=== PATIENT | male | born 2000 | race Hispanic/Latino ===

== ENCOUNTER 2021-06-09 15:39 | Emergency (ER) | payer OTHER ==
--- OUTSIDE RECORDS SUMMARY | 2021-06-09 15:41 | XMS REPORT | Continuity of Care Document ---
:2000 Author Organization [facility] t Address [address] [place] [place] [address] Care Team Providers Name Role Phone Haroon Leung Attending Clinician Doctor Unassigned, Name Attending Clinician Unavailable Jenny GIBSON Attending Clinician Problems This patient has no known problems. Allergies, Adverse Reactions, Alerts This patient has no known allergies or adverse reactions. Medications This patient has no known medications. Procedures This patient has no known procedures. Encounters Start End Encounter Admission Attending Care Care Encounter Source Date/Time Date/Time Type Type Clinicians Facility Department ID 2020-11-24 2020-11-24 Emergency Kimberly [facility] [id number] 10:33:00 12:42:00 Silvia Guzman [id number] [place] [id number] [place] [id number] 2020-11-24 2020-11-24 Orders Doctor ROSSANA [id number] 00:00:00 00:00:00 Only Unassigned, DOMINGO [id number] [place] [id number] 2019-06-12 2019-06-12 Telephone BIA [place] [id number] 00:00:00 00:00:00 [facility] [id number] [place] [id number] [facility] [phone] [place] [address] [address] One Results This patient has no known results.
[2021-06-09 16:44] LABS: Absolute Lymphocytes (CBC) 1.5 K/uL (0.7-4.9); Basophils % 0.6 % (0-1.3); Hematocrit 43.4 % (39.6-49.0); Lymphocytes % 11.9 % (15.3-44.8); MPV 8.9 fL (7.6-11.3); RBC Red Blood Cell Count 4.99 M/uL (4.33-5.43)
[2021-06-09] MEDS ORDERED: NA CHLORIDE 0.9% 1,000 ML ONE (16:48)
[2021-06-09 17:08] LABS: ALT/SGPT 61 U/L (12-78); AST/SGOT 19 U/L (15-37); Albumin 4.7 g/dL (3.4-5.0); Alkaline Phosphatase 117 U/L (45-117); BUN Blood Urea Nitrogen 12 mg/dL (7-18); Bicarbonate 26 mmol/L (21-32); Bilirubin Direct < 0.1 mg/dL (0-0.2); Bilirubin Total 0.3 mg/dL (0.2-1.0); Creatine Phosphokinase 157 U/L (39-308); Glucose Level 98 mg/dL (74-106); Magnesium 2.3 mg/dL (1.8-2.4); Potassium 4.1 mmol/L (3.5-5.1); Protein, Total 8.9 g/dL (6.4-8.2); Sodium Level 137 mmol/L (136-145); Troponin (Emerg Dept Use Only) < 0.02 ng/mL (0.0-0.045)
--- NOTE | 2021-06-09 17:16 | ER ---
Nurse's Notes [facility] Name: Christopher Garcia Jr Age: 20 yrs Sex: Male : 2000 Arrival Date: 06/09/2021 Time: 15:41 Bed 18 Private MD: Diagnosis: Syncope Near;Exposure to excessive natural heat, initial encounter Presentation: 06/09 15:46 Chief complaint: Patient states: Dizziness and nausea while at work today, also reports ph headache, states that he fells he may be dehydrated because he works in the heat. Coronavirus screen: Client denies travel out of the [place] in the last 14 days. At this time, the client does not indicate any symptoms associated with coronavirus-19. Ebola Screen: No symptoms or risks identified at this time. Initial Sepsis Screen: Does the patient meet any 2 criteria? No. Patient's initial sepsis screen is negative. Does the patient have a suspected source of infection? No. Patient's initial sepsis screen is negative. Risk Assessment: Do you want to hurt yourself or someone else? Patient reports no desire to harm self or others. Onset of symptoms was June 09, 2021. 15:46 Method Of Arrival: Ambulatory 15:46 Acuity: MARYLIN 3 ph Triage Assessment: 16:30 Headache History: Denies prior headaches. General: Appears in no apparent distress. ld1 comfortable, Behavior is calm, cooperative, appropriate for age. Pain: Pain currently is 5 out of 10 on a pain scale. Pain began suddenly, Also complains of. Historical: - Allergies: 15:49 No Known Allergies; ph - Home Meds: 15:49 None [Active]; ph - PMHx: 15:49 None; ph - Immunization history:: Client reports having NOT received the Covid vaccine. - Social history:: Smoking status: Patient denies any tobacco usage or history of. Screenin:30 Abuse screen: Denies threats or abuse. Denies injuries from another. Nutritional ld1 screening: No deficits noted. Tuberculosis screening: No symptoms or risk factors identified. Fall Risk None identified. Assessment: 16:30 General: Appears in no apparent distress. comfortable, Behavior is calm, cooperative, ld1 appropriate for age. 16:30 Pain: Denies pain. Neuro: Level of Consciousness is awake, alert, obeys commands, ld1 Oriented to person, place, time, situation, Appropriate for age. Cardiovascular: Capillary refill < 3 seconds Patient's skin is warm and dry. Respiratory: Airway is patent Respiratory effort is even, unlabored, Respiratory pattern is regular, symmetrical. GI: Abdomen is flat, non-distended. : No signs and/or symptoms were reported regarding the genitourinary system. EENT: No signs and/or symptoms were reported regarding the EENT system. Derm: No signs and/or symptoms reported regarding the dermatologic system. Musculoskeletal: No signs and/or symptoms reported regarding the musculoskeletal system. Vital Signs: 15:46 BP 150 / 107; Pulse 85; Resp 18; Temp 97.1; Pulse Ox 100% on R/A; Weight 112.04 kg; ph ED Course: 15:41 Patient arrived in ED. mr 15:49 Triage completed. ph 15:49 Arm band placed on Patient placed in waiting room, Patient notified of wait time. ph 16:02 Rosa Beaulieu, KAUSHIK is Primary Nurse. ld1 16:07 Jason Hernandez NP is PHCP. pm1 16:07 Trevin White MD is Attending Physician. pm1 16:30 Patient has correct armband on for positive identification. Placed in gown. Bed in low ld1 position. Call light in reach. Side rails up X2. Pulse ox on. NIBP on. Door closed. Noise minimized. Warm blanket given. 16:30 No provider procedures requiring assistance completed. Inserted saline lock: 20 gauge ld1 in right antecubital area, using aseptic technique. Blood collected. 16:35 XRAY Chest (1 view) In Process Unspecified. EDMS 17:31 IV discontinued, intact, bleeding controlled, No redness/swelling at site. ld1 Administered Medications: 17:04 Drug: NS 0.9% 1000 ml Route: IV; Rate: 1000 ml; Site: right antecubital; ld1 Outcome: 17:16 Discharge ordered by . pm1 17:31 Discharged to home ambulatory. ld1 17:31 Condition: stable 17:31 Discharge instructions given to patient, family, Instructed on discharge instructions, follow up and referral plans. Demonstrated understanding of instructions, follow-up care. 17:31 Patient left the ED. ld1 Signatures: Dispatcher [employer] EDMS Cindy Roy Patricia, RN RN ph Jason Hernandez, MOTORS ASSEMBLER MOTORS ASSEMBLER pm1 Rosa Beaulieu RN RN ld1
--- NOTE | 2021-06-09 17:16 | EDPHYS ---
Physician Documentation [facility] Name: Christopher Garcia Jr Age: 20 yrs Sex: Male : 2000 Arrival Date: 06/09/2021 Time: 15:41 Bed 18 Private MD: ED Physician Trevin White HPI: 06/09 16:19 This 20 yrs old Male presents to ER via Ambulatory with complaints of pm1 Dizziness, Headache, Nausea. 16:19 The patient presents with feeling faint. Onset: The symptoms/episode began/occurred pm1 today. Context: occurred at work, occurred while the patient was working, just prior to the episode the patient experienced no apparent symptoms. Modifying factors: The symptoms are alleviated by rest, the symptoms are aggravated by heat. Associated signs and symptoms: Pertinent positives: headache, nausea, Pertinent negatives: abdominal pain, chest pain, shortness of breath, vomiting. Severity of symptoms: in the emergency department the symptoms have resolved Pain is currently a 0 / 10. Patient's baseline: Neuro: alert and fully oriented, Motor: no deficits, Ambulation: walks without assistance, Speech: normal. The patient has experienced similar episodes in the past, a few times. The patient has not recently seen a physician. Historical: - Allergies: 15:49 No Known Allergies; ph - Home Meds: 15:49 None [Active]; ph - PMHx: 15:49 None; ph - Immunization history:: Client reports having NOT received the Covid vaccine. - Social history:: Smoking status: Patient denies any tobacco usage or history of. ROS: 16:19 Constitutional: Negative for fever, chills, and weight loss, Cardiovascular: Negative pm1 for chest pain, palpitations, and edema, Respiratory: Negative for shortness of breath, cough, wheezing, and pleuritic chest pain. 16:19 Back: Negative for injury and pain, MS/Extremity: Negative for injury and deformity, Skin: Negative for injury, rash, and discoloration. 16:19 Abdomen/GI: Positive for nausea, Negative for abdominal pain, vomiting, diarrhea. 16:19 Neuro: Positive for dizziness, near syncope, Negative for numbness, tingling, weakness. 16:19 All other systems are negative. Exam: 16:19 Constitutional: This is a well developed, well nourished patient who is awake, alert, pm1 and in no acute distress. Head/Face: Normocephalic, atraumatic. 16:19 Neck: Trachea midline, no thyromegaly or masses palpated, and no cervical lymphadenopathy. Supple, full range of motion without nuchal rigidity, or vertebral point tenderness. No Meningismus. 16:19 Back: No spinal tenderness. No costovertebral tenderness. Full range of motion. Skin: Warm, dry with normal turgor. Normal color with no rashes, no lesions, and no evidence of cellulitis. MS/ Extremity: Pulses equal, no cyanosis. Neurovascular intact. Full, normal range of motion. 16:19 Eyes: Extraocular movements: no acute changes, Conjunctiva: no acute changes, no injection, Sclera: no acute changes, icterus, is not appreciated. 16:19 ENT: Exam is negative for acute changes, Mouth: Lips: normal, moist, Oral mucosa: normal, pink and intact, moist. 16:19 Cardiovascular: Rate: normal, Rhythm: regular, Pulses: no pulse deficits are appreciated, Heart sounds: normal, normal S1and S2. 16:19 Respiratory: Exam negative for acute changes, respiratory distress, shortness of breath, Breath sounds: are clear throughout. 16:19 Abdomen/GI: Inspection: obese Palpation: abdomen is soft and non-tender, in all quadrants. 16:19 Neuro: Exam negative for acute changes, Orientation: is normal, Mentation: is normal, Motor: is normal, moves all fours. Vital Signs: 15:46 BP 150 / 107; Pulse 85; Resp 18; Temp 97.1; Pulse Ox 100% on R/A; Weight 112.04 kg; ph MDM: 16:16 Patient medically screened. pm1 17:15 Data reviewed: vital signs. Data interpreted: Pulse oximetry: on room air is 100 %. pm1 Interpretation: normal. Counseling: I had a detailed discussion with the patient and/or guardian regarding: the historical points, exam findings, and any diagnostic results supporting the discharge/admit diagnosis, lab results, radiology results, the need for outpatient follow up, to return to the emergency department if symptoms worsen or persist or if there are any questions or concerns that arise at home. 17:15 Special discussion: I have referred the patient to see his PCP for further evaluation pm1 of high blood pressure. 06/09 16:18 Order name: Basic Metabolic Panel pm1 06/09 16:18 Order name: CBC with Diff pm1 06/09 16:18 Order name: LFT's pm1 06/09 16:18 Order name: Magnesium; Complete Time: 17:14 pm1 06/09 16:18 Order name: Troponin (emerg Dept Use Only); Complete Time: 17:14 pm1 06/09 16:18 Order name: CPK; Complete Time: 17:14 pm1 06/09 16:18 Order name: XRAY Chest (1 view); Complete Time: 17:25 pm1 06/09 16:18 Order name: EKG; Complete Time: 16:19 pm1 06/09 16:18 Order name: Cardiac monitoring; Complete Time: 17:04 pm1 06/09 16:18 Order name: EKG - Nurse/Tech; Complete Time: 17:04 pm1 06/09 16:19 Order name: Basic Metabolic Panel; Complete Time: 17:14 EDMS 06/09 16:19 Order name: CBC with Automated Diff; Complete Time: 17:01 EDMS 06/09 16:19 Order name: Liver (Hepatic) Function; Complete Time: 17:14 EDMS 06/09 16:18 Order name: IV Saline Lock; Complete Time: 17:04 pm1 06/09 16:18 Order name: Labs collected and sent; Complete Time: 17:04 pm1 06/09 16:18 Order name: O2 Per Protocol; Complete Time: 16:21 pm1 06/09 16:18 Order name: O2 Sat Monitoring; Complete Time: 16:21 pm1 Administered Medications: 17:04 Drug: NS 0.9% 1000 ml Route: IV; Rate: 1000 ml; Site: right antecubital; ld1 Disposition: 06/10 07:08 Co-signature as Attending Physician, Trevin White MD I agree with the assessment and kdr plan of care. Disposition Summary: 06/09/21 17:16 Discharge Ordered Location: Home pm1 Problem: new pm1 Symptoms: have improved pm1 Condition: Stable pm1 Diagnosis - Syncope Near pm1 - Exposure to excessive natural heat, initial encounter pm1 Followup: pm1 - With: Emergency Department - When: As needed - Reason: Worsening of condition Followup: pm1 - With: Private Physician - When: 2 - 3 days - Reason: Recheck today's complaints, Continuance of care, Re-evaluation by your physician Discharge Instructions: - Discharge Summary Sheet pm1 - Near-Syncope pm1 - Heat Exhaustion pm1 - Preventing Heat Exhaustion, Adult pm1 Forms: - Medication Reconciliation Form pm1 - Thank You Letter pm1 - Antibiotic Education pm1 - Prescription Opioid Use pm1 Signatures: Dispatcher [employer] EDTrevin Lorenzo MD MD kdr Hall, Patricia RN RN ph Jason Hernandez, [employer] RESEARCHER pm1 Rosa Beaulieu RN RN ld1
--- NOTE | 2021-06-09 17:22 | RAD REPORT ---
EXAM DESCRIPTION: Ai Single View06/09/2021 4:35 pm CLINICAL HISTORY: Syncope COMPARISON: none FINDINGS: The lungs appear clear of acute infiltrate. The heart is normal size IMPRESSION: No acute abnormalities displayed
[2021-06-09 18:56] VITALS: BP 150/107; TEMP 97.1; O2SAT 100
--- NOTE | 2021-06-10 10:42 | EKG ---
Test Date: 2021-06-09 Test Time: 16:29:10 Pin Drafting Machine Tender: MARSHALL MEASUREMENT RESULTS: Intervals: Rate: 85 KS: 144 QRSD: 92 QT: 350 QTc: 416 [place]: P: 35 KS: 144 QRS: 10 T: 76 INTERPRETIVE STATEMENTS: Normal sinus rhythm Normal ECG No previous ECG available for comparison Electronically Signed On 06-10-21 10:41:09 CDT by Javier Carias
== END 2021-06-09 17:31 | disposition home or self-care (01) ==
LOC: ER 15:39
DX: R55 Syncope and collapse (principal); X30.XXXA Exposure to excessive natural heat, initial encounter
CPT/HCPCS: 93005; 85025; 80048; 36415; 83735; 82550; 80076; 84484; 71045; 99284; J7030

== ENCOUNTER 2022-07-30 16:08 | Emergency (ER) | payer OTHER ==
--- OUTSIDE RECORDS SUMMARY | 2022-07-30 16:19 | XMS REPORT | Continuity of Care Document ---
:2000 Author Organization [facility] t Address [address] [place] [place] [address] Care Team Providers Name Role Phone PCP, PATIENT DOES NOT HAVE A Primary Care Physician UnavailDOLLY Clarke Attending Clinician Unavailable Dolly Mariee MD Attending Clinician Silvia Leung Attending Clinician Doctor Unassigned, [place] Attending Clinician Unavailable Gail Collins Attending Clinician Payers Payer Name Policy Type Policy Number Effective Date Expiration Date S james ALVARADO FROM [id number] 2020 [facility] 00:00:00 Problems Condition Condition Condition Status Onset Resolution Last Treating Co mments Source Name Details Category Date Date Treatment Clinician Date Epigastric Epigastric Disease Active U nivers pain pain 7-15 ity of 00:00: [address] Elevated Elevated Disease Active Unive rs blood blood 7-15 ity of pressure pressure 00:00: [place] reading reading [facility] Nonintract Nonintract Disease Active U nivers able able 6-14 ity of headache headache 00:00: [address] Impacted Impacted Disease Active Unive rs cerumen of cerumen of 6-14 it y of [place] [facility] Allergies, Adverse Reactions, Alerts Allergy Allergy Status Severity Reaction(s) Onset Inactive Treating Comm ents Source Name Type Date Date Clinician NO KNOWN Drug Active Univers ALLERGIE Class ity of S [facility] Social History Social Habit Start Date Stop Date Quantity Comments Source Exposure to 2022-07-17 2022-07-27 Not sure [facility] SARS-CoV-2 00:00:00 20:41:00 [facility] (event) [place] Alcohol intake 2022-07-27 2022-07-27 0 /d [facility] 00:00:00 00:00:00 [facility] Tobacco use and 2013-12-05 2013-12-05 Smokeless tobacco Un iversity of exposure 00:00:00 00:00:00 non-user [facility] Sex Assigned At [birth year] Universit y of 00:00:00 00:00:00 [facility] Smoking Status Start Date Stop Date Source Never smoked tobacco [facility] [place] Medications Ordered Filled Start Stop Current Ordering Indication Dosage Frequency Signature Comments Components Source Medication Medication Date Date Medication? Clinician (SIG) Name Name cephALEXin 2021- Yes [id number] 500mg Take 1 Univers 500 mg 07-27 capsule by ity of capsule 00:00: 04:59 mouth 3 [place] 00 :00 (three) Medical times [place] daily for 10 days. tetanus-dip 2020- No .5mL 0.5 mL, Un julius htheria 11-24 Intramuscu ity o f toxoids 17:45: 17:45 lar, ONCE, [place] as (TDVAX) 2-2 00 :00 1 dose, Medic al Lf unit/0.5 11/24/20 Br anch mL at 1145, injection Routine 0.5 mL cephALEXin 2020- No [id number] 500mg Take 1 Univers (KEFLEX) 11-24 [id number] capsule by it y of 500 mg 00:00: 05:59 mouth 4 [place] capsule 00 :00 (four) Medical times [place] daily for 7 days. levoFLOXaci 2020- No [id number] 500mg Take 1 Univers n 11-24 [id number] tablet by ity of (LEVAQUIN) 00:00: 05:59 mouth [place] 500 mg 00 :00 every 24 Medical tablet (twenty-fo Branch ur) hours for 7 days. omeprazole 2018- No [id number] 20mg Take 1 Univers (PRILOSEC 7-15 08-15 tablet by ity of OTC) 20 mg 00:00: 04:59 mouth [place] tablet 00 :00 daily Medical before a Branch meal for 30 days. No known No Univers medications ity of [facility] Immunizations Ordered Immunization Filled Immunization Date Status Commen ts Source Name Name Td 2020-11-24 Completed University of 00:00:00 [facility] Branch Td 2020-11-24 Completed University of 00:00:00 [facility] Meningococcal B, OMV 2016-04-15 Completed Univ ersity of 00:00:00 [facility] Meningococcal B, OMV 2016-04-15 Completed Univ ersity of 00:00:00 [facility] Meningococcal B, OMV 2016-04-15 Completed Univ ersity of 00:00:00 [facility] Meningococcal B, OMV 2016-04-15 Completed Univ ersity of 00:00:00 [facility] Meningococcal 2016-02-25 Completed University of Polysaccharide 00:00:00 [place] [facility]andra (groups A, C, Y and Branc h W-135) conjugate vaccine (MCV4P) Meningococcal B, OMV 2016-02-25 Completed Univ ersity of 00:00:00 [facility] Meningococcal 2016-02-25 Completed University of Polysaccharide 00:00:00 [place] Med[facility] lisandra (groups A, C, Y and Branc h W-135) conjugate vaccine (MCV4P) Meningococcal B, OMV 2016-02-25 Completed Univ ersity of 00:00:00 [facility] Meningococcal 2016-02-25 Completed University of Polysaccharide 00:00:00 [place] Med[facility] lisandra (groups A, C, Y and Branc h W-135) conjugate vaccine (MCV4P) Meningococcal B, OMV 2016-02-25 Completed Univ ersity of 00:00:00 [facility] Meningococcal 2016-02-25 Completed University of Polysaccharide 00:00:00 [place] Medi lisandra (groups A, C, Y and Branc h W-135) conjugate vaccine (MCV4P) Meningococcal B, OMV 2016-02-25 Completed Univ ersity of 00:00:00 [facility] Influenza Virus 2015-09-18 Completed Universit y of Vaccine Quad IM 3+ 00:00:00 [facility] Influenza Virus 2015-09-18 Completed Universit y of Vaccine Quad IM 3+ 00:00:00 [facility] Influenza Virus 2015-09-18 Completed Universit y of Vaccine Quad IM 3+ 00:00:00 [facility] Influenza Virus 2015-09-18 Completed Universit y of Vaccine Quad IM 3+ 00:00:00 [facility] Influenza Virus 2015-01-07 Completed Universit y of Vaccine Quad Nasal 00:00:00 [facility] Influenza Virus 2015-01-07 Completed Universit y of Vaccine Quad Nasal 00:00:00 [facility] Influenza Virus 2015-01-07 Completed Universit y of Vaccine Quad Nasal 00:00:00 [facility] Influenza Virus 2015-01-07 Completed Universit y of Vaccine Quad Nasal 00:00:00 [facility] Influenza Virus 2013-12-05 Completed Universit y of Vaccine Nasal 00:00:00 [facility] Influenza Virus 2013-12-05 Completed Universit y of Vaccine Nasal 00:00:00 [facility] Influenza Virus 2013-12-05 Completed Universit y of Vaccine Nasal 00:00:00 [facility] Influenza Virus 2013-12-05 Completed Universit y of Vaccine Nasal 00:00:00 [facility] Influenza Virus 2012-09-29 Completed Universit y of Vaccine Nasal 00:00:00 [facility] Influenza Virus 2012-09-29 Completed Universit y of Vaccine Nasal 00:00:00 [facility] Influenza Virus 2012-09-29 Completed Universit y of Vaccine Nasal 00:00:00 [facility] Influenza Virus 2012-09-29 Completed Universit y of Vaccine Nasal 00:00:00 [facility] HPV 2011-08-10 Completed University of 00:00:00 [facility] HPV 2011-08-10 Completed University of 00:00:00 [facility] HPV 2011-08-10 Completed University of 00:00:00 [facility] HPV 2011-08-10 Completed University of 00:00:00 [facility] HPV 2010-12-31 Completed University of 00:00:00 [facility] HPV 2010-12-31 Completed University of 00:00:00 [facility] HPV 2010-12-31 Completed University of 00:00:00 [facility] Branch HPV 2010-12-31 Completed University of 00:00:00 [facility] HPV 2010-09-15 Completed University of 00:00:00 [facility] Influenza Virus 2010-09-15 Completed Universit y of Vaccine 00:00:00 [facility] Meningococcal Vaccine 2010-09-15 Completed Uni versity of 00:00:00 [facility] Branch TDAP 2010-09-15 Completed University of 00:00:00 [facility] HPV 2010-09-15 Completed University of 00:00:00 [facility] Influenza Virus 2010-09-15 Completed Universit y of Vaccine 00:00:00 [facility] Meningococcal Vaccine 2010-09-15 Completed Uni versity of 00:00:00 [facility] TDAP 2010-09-15 Completed University of 00:00:00 [facility] HPV 2010-09-15 Completed University of 00:00:00 [facility] Influenza Virus 2010-09-15 Completed Universit y of Vaccine 00:00:00 [facility] Meningococcal Vaccine 2010-09-15 Completed Uni versity of 00:00:00 [facility] Tdap 2010-09-15 Completed University of 00:00:00 [facility] HPV 2010-09-15 Completed University of 00:00:00 [facility] Influenza Virus 2010-09-15 Completed Universit y of Vaccine 00:00:00 [facility] Meningococcal Vaccine 2010-09-15 Completed Uni versity of 00:00:00 [facility] TDAP 2010-09-15 Completed University of 00:00:00 [facility] H1n1 Vaccine 2009-10-21 Completed University o f 00:00:00 [facility] H1n1 Vaccine 2009-10-21 Completed University o f 00:00:00 [facility] H1n1 Vaccine 2009-10-21 Completed University o f 00:00:00 [facility] H1n1 Vaccine 2009-10-21 Completed University o f 00:00:00 [facility] Influenza Virus 2007-12-01 Completed Universit y of Vaccine 00:00:00 [facility] Influenza Virus 2007-12-01 Completed Universit y of Vaccine 00:00:00 [facility] Influenza Virus 2007-12-01 Completed Universit y of Vaccine 00:00:00 [facility] Influenza Virus 2007-12-01 Completed Universit y of Vaccine 00:00:00 [facility] Influenza Virus 2007-10-27 Completed Universit y of Vaccine 00:00:00 [facility] Influenza Virus 2007-10-27 Completed Universit y of Vaccine 00:00:00 [facility] Influenza Virus 2007-10-27 Completed Universit y of Vaccine 00:00:00 [facility] Influenza Virus 2007-10-27 Completed Universit y of Vaccine 00:00:00 [facility] Varicella 2006-12-23 Completed University of (varivax)(chicken 00:00:00 [place] [facility] pox) Branch Varicella 2006-12-23 Completed University of (varivax)(chicken 00:00:00 [place] [facility] pox) Branch Varicella 2006-12-23 Completed University of (varivax)(chicken 00:00:00 [place] M ed[facility] pox) Branch Varicella 2006-12-23 Completed University of (varivax)(chicken 00:00:00 [place] M [facility] pox) Branch HEPATITIS A 2006-06-02 Completed University of 00:00:00 [facility] HEPATITIS A 2006-06-02 Completed University of 00:00:00 [facility] HEPATITIS A 2006-06-02 Completed University of 00:00:00 [facility] HEPATITIS A 2006-06-02 Completed University of 00:00:00 [facility] HEPATITIS A 2005-11-24 Completed University of 00:00:00 [facility] HEPATITIS A 2005-11-24 Completed University of 00:00:00 [facility] HEPATITIS A 2005-11-24 Completed University of 00:00:00 [facility] HEPATITIS A 2005-11-24 Completed University of 00:00:00 [facility] DTAP 2003-10-07 Completed University of 00:00:00 [facility] MMR 2003-10-07 Completed University of 00:00:00 [facility] Polio (IPV/OPV) 2003-10-07 Completed Universit y of 00:00:00 [facility] DTAP 2003-10-07 Completed University of 00:00:00 [facility] DTAP 2003-10-07 Completed University of 00:00:00 [facility] MMR 2003-10-07 Completed University of 00:00:00 [facility] Polio (IPV/OPV) 2003-10-07 Completed Universit y of 00:00:00 [facility] MMR 2003-10-07 Completed University of 00:00:00 [facility] Polio (IPV/OPV) 2003-10-07 Completed Universit y of 00:00:00 [facility] DTAP 2003-10-07 Completed University of 00:00:00 [facility] MMR 2003-10-07 Completed University of 00:00:00 [facility] Polio (IPV/OPV) 2003-10-07 Completed Universit y of 00:00:00 [facility] Pneumococcal 7 2003-02-07 Completed University of Conjugate, PCV7 00:00:00 [place] Med ical (Prevnar7) Branch Pneumococcal 7 2003-02-07 Completed University of Conjugate, PCV7 00:00:00 [place] [facility] ical (Prevnar7) Branch Pneumococcal 7 2003-02-07 Completed University of Conjugate, PCV7 00:00:00 [place] [facility] ical (Prevnar7) Branch Pneumococcal 7 2003-02-07 Completed University of Conjugate, PCV7 00:00:00 [place] Med ical (Prevnar7) Branch Pneumococcal 7 2001-02-06 Completed University of Conjugate, PCV7 00:00:00 [place] Med ical (Prevnar7) Branch Pneumococcal 7 2001-02-06 Completed University of Conjugate, PCV7 00:00:00 [place] [facility] ical (Prevnar7) Branch Pneumococcal 7 2001-02-06 Completed University of Conjugate, PCV7 00:00:00 [place] [facility] ical (Prevnar7) Branch Pneumococcal 7 2001-02-06 Completed University of Conjugate, PCV7 00:00:00 [place] [facility] ical (Prevnar7) Branch Hep B, Adol or Pedi 2000-11-07 Completed Unive rsity of Dosage 00:00:00 [facility] Hep B, Adol or Pedi 2000-11-07 Completed Unive rsity of Dosage 00:00:00 [facility] Hep B, Adol or Pedi 2000-11-07 Completed Unive rsity of Dosage 00:00:00 [facility] Hep B, Adol or Pedi 2000-11-07 Completed Unive rsity of Dosage 00:00:00 [facility] DTAP 2000-08-08 Completed University of 00:00:00 [facility] HIB 4 Dose Schedule 2000-08-08 Completed Unive rsity of 00:00:00 [facility] MMR 2000-08-08 Completed University of 00:00:00 [facility] Polio (IPV/OPV) 2000-08-08 Completed Universit y of 00:00:00 [facility] Varicella 2000-08-08 Completed University of (varivax)(chicken 00:00:00 [facility] edical pox) Branch DTAP 2000-08-08 Completed University of 00:00:00 [facility] DTAP 2000-08-08 Completed University of 00:00:00 [facility] HIB 4 Dose Schedule 2000-08-08 Completed Unive rsity of 00:00:00 [facility] MMR 2000-08-08 Completed University of 00:00:00 [facility] Polio (IPV/OPV) 2000-08-08 Completed Universit y of 00:00:00 [facility] HIB 4 Dose Schedule 2000-08-08 Completed Unive rsity of 00:00:00 [facility] Varicella 2000-08-08 Completed University of (varivax)(chicken 00:00:00 [place] M edical pox) Branch MMR 2000-08-08 Completed University of 00:00:00 [facility] Polio (IPV/OPV) 2000-08-08 Completed Universit y of 00:00:00 [facility] Varicella 2000-08-08 Completed University of (varivax)(chicken 00:00:00 [place] M edical pox) Branch DTAP 2000-08-08 Completed University of 00:00:00 [facility] HIB 4 Dose Schedule 2000-08-08 Completed Unive rsity of 00:00:00 [facility] MMR 2000-08-08 Completed University of 00:00:00 [facility] Polio (IPV/OPV) 2000-08-08 Completed Universit y of 00:00:00 [facility] Varicella 2000-08-08 Completed University of (varivax)(chicken 00:00:00 [place] M edical pox) Branch Hep B, Adol or Pedi 2000-05-09 Completed Unive rsity of Dosage 00:00:00 [facility] Hep B, Adol or Pedi 2000-05-09 Completed Unive rsity of Dosage 00:00:00 [facility] Hep B, Adol or Pedi 2000-05-09 Completed Unive rsity of Dosage 00:00:00 [facility] Hep B, Adol or Pedi 2000-05-09 Completed Unive rsity of Dosage 00:00:00 [facility] DTAP 2000-02-09 Completed University of 00:00:00 [facility] HIB 4 Dose Schedule 2000-02-09 Completed Unive rsity of 00:00:00 [facility] Hep B, Adol or Pedi 2000-02-09 Completed Unive rsity of Dosage 00:00:00 [facility] DTAP 2000-02-09 Completed University of 00:00:00 [facility] DTAP 2000-02-09 Completed University of 00:00:00 [facility] HIB 4 Dose Schedule 2000-02-09 Completed Unive rsity of 00:00:00 [facility] Hep B, Adol or Pedi 2000-02-09 Completed Unive rsity of Dosage 00:00:00 [facility] HIB 4 Dose Schedule 2000-02-09 Completed Unive rsity of 00:00:00 [facility] Hep B, Adol or Pedi 2000-02-09 Completed Unive rsity of Dosage 00:00:00 [facility] DTAP 2000-02-09 Completed University of 00:00:00 [facility] HIB 4 Dose Schedule 2000-02-09 Completed Unive rsity of 00:00:00 [facility] Hep B, Adol or Pedi 2000-02-09 Completed Unive rsity of Dosage 00:00:00 [facility] DTAP 1999 Completed University of 00:00:00 [facility] HIB 4 Dose Schedule 1999 Completed Unive rsity of 00:00:00 [facility] Polio (IPV/OPV) 1999 Completed Universit y of 00:00:00 [facility] DTAP 1999 Completed University of 00:00:00 [facility] DTAP 1999 Completed University of 00:00:00 [facility] HIB 4 Dose Schedule 1999 Completed Unive rsity of 00:00:00 [facility] HIB 4 Dose Schedule 1999 Completed Unive rsity of 00:00:00 [facility] Polio (IPV/OPV) 1999 Completed Universit y of 00:00:00 [facility] Polio (IPV/OPV) 1999 Completed Universit y of 00:00:00 [facility] DTAP 1999 Completed University of 00:00:00 [facility] HIB 4 Dose Schedule 1999 Completed Unive rsity of 00:00:00 [facility] Polio (IPV/OPV) 1999 Completed Universit y of 00:00:00 [facility] DTAP 1999 Completed University of 00:00:00 [facility] HIB 4 Dose Schedule 1999 Completed Unive rsity of 00:00:00 [facility] DTAP 1999 Completed University of 00:00:00 [facility] Polio (IPV/OPV) 1999 Completed Universit y of 00:00:00 [facility] DTAP 1999 Completed University of 00:00:00 [facility] HIB 4 Dose Schedule 1999 Completed Unive rsity of 00:00:00 [facility] HIB 4 Dose Schedule 1999 Completed Unive rsity of 00:00:00 [facility] Polio (IPV/OPV) 1999 Completed Universit y of 00:00:00 [facility] Polio (IPV/OPV) 1999 Completed Universit y of 00:00:00 [facility] DTAP 1999 Completed University of 00:00:00 [facility] HIB 4 Dose Schedule 1999 Completed Unive rsity of 00:00:00 [facility] Polio (IPV/OPV) 1999 Completed Universit y of 00:00:00 [facility] Vital Signs Vital Name Observation Time Observation Value Comments Source Systolic blood 2022-07-28 01:43:00 160 mm[Hg] Univer sity of pressure [facility] Diastolic blood 2022-07-28 01:43:00 113 mm[Hg] Unive rsity of pressure [facility] Heart rate 2022-07-28 01:43:00 105 /min [facility] Body temperature 2022-07-28 01:43:00 36.78 [place] [facility] Res[facility] rate 2022-07-28 01:43:00 18 /min [facility] Body height 2022-07-28 01:43:00 165.1 cm [facility] Body weight 2022-07-28 01:43:00 113.399 kg [facility] BMI 2022-07-28 01:43:00 41.60 kg/m2 [facility] Oxygen saturation in 2022-07-28 01:43:00 96 /min [facility] Arterial blood by [facility] Pulse oximetry Branch Respiratory rate 2020-11-24 16:31:00 18 /min Univ ersity of [place] [facility] Body weight 2020-11-24 16:31:00 83.915 kg Universi ty of [place] [facility] Oxygen saturation in 2020-11-24 16:31:00 99 /min University of Arterial blood by [facility] Pulse oximetry Branch Systolic blood 2020-11-24 16:31:00 156 mm[Hg] Univer sity of pressure [place] [facility] Diastolic blood 2020-11-24 16:31:00 137 mm[Hg] Unive rsity of pressure [place] [facility] Heart rate 2020-11-24 16:31:00 92 /min Universi ty of [place] [facility] Body temperature 2020-11-24 16:31:00 37.22 [place] Univ ersity of [place] [facility] Respiratory rate 2020-11-24 16:31:00 18 /min Univ ersity of [place] [facility] Body weight 2020-11-24 16:31:00 83.915 kg Universi ty of [place] [facility] [place] Oxygen saturation in 2020-11-24 16:31:00 99 /min University of Arterial blood by [facility] Pulse oximetry Branch Systolic blood 2020-11-24 16:31:00 156 mm[Hg] Univer sity of pressure [place] [facility] Diastolic blood 2020-11-24 16:31:00 137 mm[Hg] Unive rsity of pressure [place] [facility] Heart rate 2020-11-24 16:31:00 92 /min Universi ty of [place] [facility] Body temperature 2020-11-24 16:31:00 37.22 [place] [facility] [place] [facility] [place] Procedures Procedure Date / Time Performed Performing Clinician [facility] e NOTICE OF PRIVACY 2022-07-28 01:39:30 Doctor Unassigned, No Univ ersity of [place] PRACTICES Name Medical Branch CONSENT/REFUSAL FOR 2022-07-28 01:39:01 Doctor Unassigned, No Un iversity of [place] DIAGNOSIS AND Name Medical Branch TREATMENT XR TOES 2 VW LEFT 2020-11-24 17:21:47 Silvia Harris [facility] [place] CONSENT/REFUSAL FOR 2020-11-24 16:14:16 Doctor Unassigned, No Un [facility] of [place] DIAGNOSIS AND Name Medical Branch TREATMENT Encounters Start End Encounter Admission Attending Care Care Encounter Source Date/Time Date/Time Type Type Clinicians Facility Department ID 2021-09-19 Emergency [facility] [id number] Univers 14:43:31 ity [facility] 2022-07-27 2022-07-27 Emergency X [facility] ERT [id number] Univers 20:46:00 21:23:00 DOLLY ity [facility] 2022-07-27 2022-07-27 Emergency [facility] [id number] Univers 20:46:00 21:23:00 Dolly Lr LADY [id number] ity of [place] [id number] [facility] [id number] [address] 2020-11-24 2020-11-24 Emergency [facility] [id number] 10:33:00 12:42:00 Silvia Guzman [id number] [place] [id number] [place] [id number] [facility] 2020-11-24 2020-11-24 Emergency [facility] [id number] Univers 10:33:00 12:42:00 Silvia Guzman [id number] i ty of [place] [id number] [facility] [id number] [address] 2020-11-24 2020-11-24 Orders Doctor TRACY [id number] 00:00:00 00:00:00 Only UnassignedDOMINGO [id number] [place] [facility] [id number] 2020-11-24 2020-11-24 Orders Doctor ROSSANA [id number] Univers 00:00:00 00:00:00 Only UnassignedDOMINGO [id number] ity of [place] [facility] [id number] [place] [id number] [address] 2019-06-12 2019-06-12 [facility] [id number] 00:00:00 00:00:00 [facility] [id number] [place] [id number] Professio [id number] [address]al [address] 2019-06-12 2019-06-12 Telephone BIA Alvarado [id number] Univers 00:00:00 00:00:00 Gail Burnette [id number] it y of [place] [id number] [place] as Faviola [id number] Dc dical nal [address] Results Test Description Test Time Test Comments Results Result Sourc e Comments XR TOES 2 VW No acute bony Universi ty of LEFT 4 abnormality. Soft [facility] edical 18:13:03 tissue swelling Branch with possible radiopaque foreign bodies in the greattoe. REPORT CHANGE: Multiple subcentimeter densities in the great toe soft tissues mayrepresent foreign bodies, soft tissue calcifications or remote fracturefragments. Correlation with the location of soft tissue injury isrecommended. The findings of this study, including possible foreign bodies, have beendiscussed with and acknowledged by Dr. Barrera over the phone on 11/24/2020 [id number] with readback. Preliminary Report Dictated by Resident: Kelly Tucker MD., have reviewed this study and agree with the abovereport.EXAM: XR TOES 2 VW LEFT HISTORY: stepped on glass COMPARISON: None. FINDINGS: Radiographs of the left toes demonstrate no acute fractures ordislocations. Joint spaces are preserved. Alignment is within normallimits. Mild soft tissue swelling seen about the plantar surface of thegreat toe. [facility], Radiant Results Inft User - 11/24/2020 12:14 PM CSTEXAM: XR TOES 2 VW LEFTHISTORY: stepped on glass COMPARISON: None.FINDINGS: Radiographs of the left toes demonstrate no acute fractures ordislocations. Joint spaces are preserved. Alignment is within normallimits. Mild soft tissue swelling seen about the plantar surface of thegreat toe.IMPRESSIONNo acute bony abnormality.Soft tissue swelling with possible radiopaque foreign bodies in the greattoe.REPORT CHANGE:Multiple subcentimeter densities in the great toe soft tissues mayrepresent foreign bodies, soft tissue calcifications or remote fracturefragments. Correlation with the location of soft tissue injury isrecommended.The findings of this study, including possible foreign bodies, have beendiscussed with and acknowledged by Dr. Barrera over the phone on 11/24/2020 [id number] with readback. Preliminary Report Dictated by Resident: Lisa Orr, Kelly Pinto MD., have reviewed this study and agree with the abovereport.
--- NOTE | 2022-07-30 17:46 | EDPHYS ---
Physician Documentation [facility] Name: Christopher Garcia Jr Age: 21 yrs Sex: Male : 2000 Arrival Date: 07/30/2022 Time: 16:15 Bed 10 Private MD: ED Physician Darryl Bryant HPI: 07/30 17:37 This 21 yrs old Male presents to ER via Ambulatory with complaints of Insect briana Bite. 17:37 The patient presents with an abscess of the right elbow. Description: The affected area briana is small, irregular, draining, erythematous, fluctuant. Onset: The symptoms/episode began/occurred 3 day(s) ago. Possible cause(s): insect sting, spider bite. Associated signs and symptoms: The patient has no apparent associated signs or symptoms. The patient has not experienced similar symptoms in the past. Historical: - Allergies: 16:59 No Known Allergies; bm7 - Home Meds: 16:59 None [Active]; bm7 - PMHx: 16:59 None; bm7 - PSHx: 16:59 None; bm7 - Immunization history:: Adult Immunizations up to date, Client reports having NOT received the Covid vaccine. - Social history:: Smoking status: Patient denies any tobacco usage or history of. - Family history:: not pertinent. ROS: 17:37 Constitutional: Negative for fever, chills, and weight loss, Eyes: Negative for injury, briana pain, redness, and discharge, ENT: Negative for injury, pain, and discharge, Neck: Negative for injury, pain, and swelling, Cardiovascular: Negative for chest pain, palpitations, and edema, Respiratory: Negative for shortness of breath, cough, wheezing, and pleuritic chest pain, Abdomen/GI: Negative for abdominal pain, nausea, vomiting, diarrhea, and constipation, Back: Negative for injury and pain, : Negative for injury, bleeding, discharge, and swelling, Neuro: Negative for headache, weakness, numbness, tingling, and seizure, Psych: Negative for depression, anxiety, suicide ideation, homicidal ideation, and hallucinations, Allergy/Immunology: Negative for hives, rash, and allergies, Endocrine: Negative for neck swelling, polydipsia, polyuria, polyphagia, and marked weight changes, Hematologic/Lymphatic: Negative for swollen nodes, abnormal bleeding, and unusual bruising. 17:37 MS/extremity: Positive for erythema, pain, swelling, tenderness, of the right elbow. Exam: 17:37 Constitutional: This is a well developed, well nourished patient who is awake, alert, briana and in no acute distress. Head/Face: Normocephalic, atraumatic. Eyes: Pupils equal round and reactive to light, extra-ocular motions intact. Lids and lashes normal. Conjunctiva and sclera are non-icteric and not injected. Cornea within normal limits. Periorbital areas with no swelling, redness, or edema. ENT: Nares patent. No nasal discharge, no septal abnormalities noted. Tympanic membranes are normal and external auditory canals are clear. Oropharynx with no redness, swelling, or masses, exudates, or evidence of obstruction, uvula midline. Mucous membranes moist. Neck: Trachea midline, no thyromegaly or masses palpated, and no cervical lymphadenopathy. Supple, full range of motion without nuchal rigidity, or vertebral point tenderness. No Meningismus. Chest/axilla: Normal chest wall appearance and motion. Nontender with no deformity. No lesions are appreciated. Cardiovascular: Regular rate and rhythm with a normal S1 and S2. No gallops, murmurs, or rubs. Normal PMI, no JVD. No pulse deficits. Respiratory: Lungs have equal breath sounds bilaterally, clear to auscultation and percussion. No rales, rhonchi or wheezes noted. No increased work of breathing, no retractions or nasal flaring. Abdomen/GI: Soft, non-tender, with normal bowel sounds. No distension or tympany. No guarding or rebound. No evidence of tenderness throughout. Back: No spinal tenderness. No costovertebral tenderness. Full range of motion. Male : Normal genitalia with no discharge or lesions. Skin: Warm, dry with normal turgor. Normal color with no rashes, no lesions, and no evidence of cellulitis. Neuro: Awake and alert, GCS 15, oriented to person, place, time, and situation. Cranial nerves II-XII grossly intact. Motor strength 5/5 in all extremities. Sensory grossly intact. Cerebellar exam normal. Normal gait. Psych: Awake, alert, with orientation to person, place and time. Behavior, mood, and affect are within normal limits. 17:37 Musculoskeletal/extremity: ROM: full active range of motion, full passive range of motion, Circulation is intact in all extremities. Sensation intact. Compartment Syndrome exam of affected extremity: is normal. Vital Signs: 16:55 BP 162 / 90; Pulse 86; Resp 18; Temp 98.9(TE); Pulse Ox 99% on R/A; Weight 113.4 kg bm7 (R); Height 5 ft. 4 in. (162.56 cm); Pain 0/10; 16:55 Body Mass Index 42.91 (113.40 kg, 162.56 cm) bm7 Procedures: 17:47 I \T\ D: Incision and drainage was performed for an abscess of the right Prepped with [facility] Betadine, Anesthetized with nothing. Drained small amount serosanguinous fluid. Packed with iodoform gauze, Dressing: non-Adherent dressing, the patient tolerated the procedure well. MDM: 17:01 Patient medically screened. [facility] 17:37 Differential diagnosis: abscess, cellulitis, insect bite. Data reviewed: vital signs, [facility] nurses notes. 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 Counseling: I had a detailed discussion with the patient and/or guardian regarding: the historical points, exam findings, and any diagnostic results supporting the discharge/admit diagnosis, the need for outpatient follow up, for definitive care, a general surgeon. 07/30 17:37 Order name: Dressing - Wound; Complete Time: 18:12 [facility] 07/30 17:37 Order name: Gloves, Sterile; Complete Time: 18:12 [facility] 07/30 17:37 Order name: Setup Suture Tray; Complete Time: 18:12 briana Administered Medications: 18:12 Drug: Doxycycline 200 mg Route: PO; ss 18:28 Follow up: Response: Medication administered at discharge. ss 18:12 Drug: Bactrim (trimethoprim-sulfamethoxazole) (160 mg-800 mg (DS) 1 tablet Route: PO; ss 18:28 Follow up: Response: Medication administered at discharge. ss 18:12 Drug: Bactroban (mupirocin) Ointment 2 % 1 application Route: Topical; Site: affected ss area; Disposition Summary: 07/30/22 17:45 Discharge Ordered Location: Home [facility] Problem: new briana Symptoms: have improved briana Condition: Stable briana Diagnosis - Cutaneous abscess of limb - elbow, bursa briana - Cellulitis and acute lymphangitis of other parts of limb - elbow and forearm briana Followup: [facility] - With: Ryan Julio MD - When: 2 - 3 days - Reason: Recheck today's complaints, Continuance of care, Re-evaluation by your physician Discharge Instructions: - Discharge Summary Sheet briana - Skin Abscess briana - Cellulitis, Adult briana - Skin Abscess, [id number] briana - Cellulitis, Adult, [id number] [facility] Forms: - Medication Reconciliation Form [facility] - Thank You Letter [facility] - Antibiotic Education [facility] - Prescription Opioid Use [facility] - Work release form Prescriptions: - Centany 2 % Topical ointment - apply 1 application by TOPICAL route 3 times per day; 30 gram; Refills: 0, [facility] Product Selection Permitted - Doxycycline Hyclate 100 mg Oral Tablet - take 1 tablet by ORAL route every 12 hours; 20 tablet; Refills: 0, Product [facility] Selection Permitted - Bactrim DS 800-160 mg Oral Tablet - take 1 tablet by ORAL route every 12 hours for 10 days; 20 tablet; Refills: 0, [facility] Product Selection Permitted Signatures: Darryl Bryant MD MD cha Smirch, Shelby, RN RN ss Ailyn Ibanez, RN RN bm7
--- NOTE | 2022-07-30 17:46 | ER ---
Nurse's Notes [facility] Name: Christopher Garcia Jr Age: 21 yrs Sex: Male : 2000 Arrival Date: 07/30/2022 Time: 16:15 Bed 10 Private MD: Diagnosis: Cutaneous abscess of limb-elbow, bursa;Cellulitis and acute lymphangitis of other parts of limb-elbow and forearm Presentation: 07/30 16:55 Chief complaint: Patient states: I have a spider bite that keeps getting worse and the bm7 redness keeps spreading. Coronavirus screen: At this time, the client does not indicate any symptoms associated with coronavirus-19. Ebola Screen: No symptoms or risks identified at this time. Initial Sepsis Screen: Does the patient meet any 2 criteria? No. Patient's initial sepsis screen is negative. Does the patient have a suspected source of infection? Yes: Skin breakdown/wound. Risk Assessment: Do you want to hurt yourself or someone else? Patient reports no desire to harm self or others. Onset of symptoms is unknown. 16:55 Method Of Arrival: Ambulatory [facility] 16:55 Acuity: MARYLIN 3 bm7 Triage Assessment: 16:59 Bite description: bite sustained to right elbow by a spider, animal information: bm7 vaccination(s) is unknown. General: Appears in no apparent distress. comfortable, Behavior is calm, cooperative, appropriate for age. Pain: Denies pain. EENT: No deficits noted. No signs and/or symptoms were reported regarding the EENT system. Neuro: No deficits noted. Cardiovascular: No deficits noted. Respiratory: No deficits noted. GI: No deficits noted. No signs and/or symptoms were reported involving the gastrointestinal system. : No deficits noted. No signs and/or symptoms were reported regarding the genitourinary system. Derm: Abscess located on right elbow is half dollar sized, has purulent drainage, is hot to touch, is red. Musculoskeletal: No deficits noted. No signs and/or symptoms reported regarding the musculoskeletal system. Historical: - Allergies: 16:59 No Known Allergies; bm7 - Home Meds: 16:59 None [Active]; bm7 - PMHx: 16:59 None; bm7 - PSHx: 16:59 None; bm7 - Immunization history:: Adult Immunizations up to date, Client reports having NOT received the Covid vaccine. - Social history:: Smoking status: Patient denies any tobacco usage or history of. - Family history:: not pertinent. Screenin:26 Abuse screen: Denies threats or abuse. Denies injuries from another. Nutritional ss screening: No deficits noted. Tuberculosis screening: Never had TB. Fall Risk None identified. Assessment: 18:26 Reassessment: Patient appears in no apparent distress at this time. Patient and/or ss family updated on plan of care and expected duration. Pain level reassessed. Redness has decreased as well as swelling to affected area. Patient states feeling better. Patient states symptoms have improved. Vital Signs: 16:55 BP 162 / 90; Pulse 86; Resp 18; Temp 98.9(TE); Pulse Ox 99% on R/A; Weight 113.4 kg bm7 (R); Height 5 ft. 4 in. (162.56 cm); Pain 0/10; 16:55 Body Mass Index 42.91 (113.40 kg, 162.56 cm) bm7 ED Course: 16:15 Patient arrived in ED. mr 16:58 Triage completed. bm7 16:59 Arm band placed on right wrist. bm7 17:01 Darryl Bryant MD is Attending Physician. briana 17:42 Ryan Julio MD is Referral Physician. briana 18:12 Isabella Solomon, KAUSHIK is Primary Nurse. ss 18:26 Patient has correct armband on for positive identification. Bed in low position. ss 18:26 No provider procedures requiring assistance completed. Patient did not have IV access ss during this emergency room visit. Administered Medications: 18:12 Drug: Doxycycline 200 mg Route: PO; ss 18:28 Follow up: Response: Medication administered at discharge. ss 18:12 Drug: Bactrim (trimethoprim-sulfamethoxazole) (160 mg-800 mg (DS) 1 tablet Route: PO; ss 18:28 Follow up: Response: Medication administered at discharge. ss 18:12 Drug: Bactroban (mupirocin) Ointment 2 % 1 application Route: Topical; Site: affected ss area; Medication: 18:26 VIS not applicable for this client. ss Outcome: 17:45 Discharge ordered by . [facility] 18:26 Discharged to home ambulatory. ss 18:26 Condition: good 18:26 Discharge instructions given to patient, Instructed on discharge instructions, follow up and referral plans. medication usage, Demonstrated understanding of instructions, follow-up care, medications, Prescriptions given X 2. 18:28 Patient left the ED. ss Signatures: Darryl Bryant MD MD cha Rivera, Mary mr Smirch, Shelby, RN RN ss Ailyn Ibanez RN RN bm7
[2022-07-30] MEDS ORDERED: DOXYCYCLINE 100 MG CAP PO ONE (18:11)
[2022-07-30] MEDS ORDERED: SMZ./TMP. 800/160 MG TABLET ONE (18:11)
[2022-07-30] MEDS ORDERED: MUPIROCIN 2% OINT 22GM TUBE TOP ONE (18:19)
[2022-07-30 19:40] VITALS: BP 162/90; TEMP 98.9; O2SAT 99
== END 2022-07-30 18:28 | disposition home or self-care (01) ==
LOC: ER 16:08
PROC: 0H9DXZZ Drainage of Right Lower Arm Skin, External Approach (ICD-10-PCS; principal; 2022-07-30)
DX: L02.413 Cutaneous abscess of right upper limb (principal); L03.113 Cellulitis of right upper limb; L03.123 Acute lymphangitis of right upper limb
CPT/HCPCS: 99283